=== PATIENT | female | born 1990 | race Caucasian/White ===

== ENCOUNTER 2018-10-30 08:14 | Emergency (ER) | payer BC ==
[2018-10-30 08:46] VITALS: BP 122/63
--- NOTE | 2018-10-30 08:56 | UC ---
UC General HPI - HPI Summary HPI Summary: pt reports having ear discomfort since of last week. now she has sinus congestion, pressure and drainage that is a little green. this am she c/o cold sweats and felt a little dizzy upon standing. no fever. self tx with Mucinex and decongestant. - History of Current Complaint Chief Complaint: UCGeneralIllness Stated Complaint: SINUS COMPLAINT Time Seen by Provider: 10/30/18 08:47 Hx Obtained From: Patient Hx Last Menstrual Period: 10/2018 Onset/Duration: Gradual Onset Timing: Constant Pain Intensity: 7 Associated Signs & Symptoms: Positive: Headache - Allergy/Home Medications Allergies/Adverse Reactions: Allergies Allergy/AdvReac Type Severity Reaction Status Date / Time No Known Allergies Allergy Verified 10/30/18 08:40 Home Medications: Home Medications [email or web address] ER TAB [Mucinex*] 600 mg PO BID 10/30/18 [History Confirmed 10/30/18 ] PMH/Surg Hx/FS Hx/Imm Hx Neurological History: Migraine - Surgical History Surgical History: Yes Surgery Procedure, Year, and Place: wisdom teeth - Family History Known Family History: Positive: Non-Contributory - Social History Alcohol Use: Rare Substance Use Type: None Smoking Status (MU): Never Smoked Tobacco Review of Systems All Other Systems Reviewed And Are Negative: No Eyes: Negative: Drainage, Eye Redness ENT: Negative: Sore Throat Respiratory: Negative: Shortness Of Breath, Cough Cardiovascular: Negative: Palpitations, Chest Pain Neurological: Positive: Headache Physical Exam Triage Information Reviewed: Yes Appearance: Well-Appearing Vital Signs: Initial Vital Signs Temp 98.5 F 10/30/18 08:40 Pulse 89 10/30/18 08:40 Resp 15 10/30/18 08:40 BP 122/63 10/30/18 08:40 Pulse Ox 99 10/30/18 08:40 Vital Signs Reviewed: Yes Eyes: Positive: Conjunctiva Clear ENT: Positive: Pharynx normal, Nasal congestion, TMs normal - R, TM red - L, Uvula midline, Other - No auricular adenopathy or mastoid tenderness.. Negative : Nasal drainage, Trismus, Muffled voice, Hoarse voice Neck: Positive: Supple, Nontender, No Lymphadenopathy Respiratory: Positive: Lungs clear, Normal breath sounds Cardiovascular: Positive: RRR, No Murmur Neurological: Positive: Alert Psychological: Positive: Age Appropriate Behavior Skin Exam: Normal Course/Dx - Diagnoses Provider Diagnosis: URI (upper respiratory infection), Otitis media Discharge ED - Sign-Out/Discharge Documenting (check all that apply): Patient Departure All imaging exams completed and their final reports reviewed: No Studies - Discharge Plan Condition: Stable Disposition: HOME Prescriptions: Amoxicillin PO (*) [Amoxicillin 875 MG (*)] 875 mg PO BID 10 Days #20 tab Patient Education Materials: Ear Infection (ED), Upper Respiratory Infection ( DC) Referrals: James Sheldon MD [Medical Doctor] - Additional Instructions: follow up if not better in 7 days or sooner if worse. - Billing Disposition and Condition Condition: STABLE Disposition: Home
== END 2018-10-30 09:02 | disposition home or self-care (01) ==
LOC: UCCORT 08:14
DX: J06.9 Acute upper respiratory infection, unspecified (principal); H66.92 Otitis media, unspecified, left ear
CPT/HCPCS: 99212; G0463